=== PATIENT | female | born 1980 | race Caucasian/White ===

== ENCOUNTER 2017-08-22 18:35 | Emergency (ER) | payer MEDICAID, SELFPAY ==
--- NOTE | 2017-08-22 19:55 | RAD ---
RADIOGRAPH RIGHT FOOT 3 VIEWS: 08/22/17 HISTORY: 37-year-old female with acute traumatic right foot pain. FINDINGS: Lateral view demonstrates nondisplaced spiral fracture of the distal fibular metadiaphysis. There is no fracture, dislocation or any other osseous abnormality of the foot. IMPRESSION: 1. Normal right foot. 2. Acute, traumatic, nondisplaced spiral fracture of the distal fibular metadiaphysis. POS: [facility]
--- NOTE | 2017-08-22 20:08 | RAD ---
RADIOGRAPH RIGHT ANKLE 3 VIEWS: 08/22/17 HISTORY: 37-year-old female status post traumatic right ankle pain. FINDINGS: There is a spiral fracture of the distal metadiaphysis of the fibula, with mild comminution, and min imal displacement. There is no angulation. There is lateral soft tissue swelling. Ankle mortise is s ymmetrical. The distal tibia is intact. Talar dome is maintained. IMPRESSION: Acute, traumatic, essentially nondisplaced, mildly comminuted spiral fracture of the distal fibular metadiaphysis. POS: [facility]
[2017-08-22] MEDS ORDERED: HYDROcodone/Acetaminophen 10/325 mg Tablet ONE (20:38)
== END 2017-08-22 21:21 | disposition home or self-care (01) ==
LOC: ERS 18:35
DX: S82.444A Nondisplaced spiral fracture of shaft of right fibula, initial encounter for closed fracture (principal); I69.351 Hemiplegia and hemiparesis following cerebral infarction affecting right dominant side; I10 Essential (primary) hypertension; F41.9 Anxiety disorder, unspecified; F32.9 Major depressive disorder, single episode, unspecified; F17.210 Nicotine dependence, cigarettes, uncomplicated; Z79.899 Other long term (current) drug therapy; Z79.82 Long term (current) use of aspirin; W10.9XXA Fall (on) (from) unspecified stairs and steps, initial encounter
CPT/HCPCS: 29515

== ENCOUNTER 2017-09-09 10:06 | Emergency (ER) | payer MEDICAID ==
[2017-09-09] MEDS ORDERED: HYDROcodone/Acetaminophen 10/325 mg Tablet ONE (11:15)
--- NOTE | 2017-09-09 12:02 | ULT ---
RIGHT LOWER EXTREMITY VENOUS DOPPLER: Date: 09/09/17 HISTORY: Swelling. Pain. COMPARISON: None. TECHNIQUE: Real-time Giron scale with color Doppler and spectral analysis of the right lower extremity venous sy stem was performed with a linear transducer. FINDINGS: The right common femoral, femoral, proximal portion of greater saphenous and deep femoral vein, as w ell as popliteal and posterior tibial veins were interrogated. There is occlusive thrombus in the right popliteal vein extending to the posterior tibial vein. The common femoral, femoral, and proximal portion of greater saphenous veins are patent. IMPRESSION: Occlusive thrombus popliteal vein extending to the posterior tibial vein. ER physician notified of findings via telephone at [phone] hours. CODE CR. POS: [facility]
[2017-09-09 12:14] LABS: #Basophils 0.2 thou/uL (0.0-0.2); #Eosinphils 0.1 thou/uL (0.0-0.7); #Lymphocytes 4.1 thou/uL (1.20-3.40); #Monocytes 1.2 thou/uL (0.11-0.59); #Neutrophils 7.9 thou/uL (1.40-6.50); %Basophils 1.7 % (0.0-1.0); %Eosinophils 0.7 % (0.0-10.0); %Lymphocytes 30.6 % (21.0-51.0); %Monocytes 8.5 % (0.0-10.0); Hematocrit 44.6 % (36.0-47.0); Mean Platelet Volume 7.5 fL (7.4-10.4); Red Blood Cell (RBC) Count 4.63 mill/uL (4.20-5.40); White Blood Cell (WBC) Count 13.5 thou/uL (4.8-10.8)
[2017-09-09 12:29] LABS: PTT 31.1 SEC (22.9-36.1); Prothrombin Time 13.8 SEC (12.0-14.7)
[2017-09-09 12:38] LABS: ALT (SGPT) 24 U/L (8-55); AST (SGOT) 19 U/L (5-34); Alkaline Phosphatase 71 U/L (40-150); Anion Gap 17 mmol/L (10-20); BUN (Urea Nitrogen) 12 mg/dL (7.0-18.7); Bilirubin, Total 0.9 mg/dL (0.2-1.2); Calc. Creatinine Clearance 0 mL/min (70-130); Calcium 10.1 mg/dL (7.8-10.44); Carbon Dioxide 18 mmol/L (22-29); Chloride 104 mmol/L (98-107); Estimated GFR-MDRD Greater than 90; Globulin 3.4 g/dL (2.4-3.5); Protein, Total 7.4 g/dL (6.0-8.3)
--- NOTE | 2017-09-09 13:56 | CT ---
CT ANGIOGRAM THORAX WITH IV CONTRAST AND 3D RECONSTRUCTIONS: Date: 09/09/17 HISTORY: Shortness of breath. Patient complaining of swelling and tenderness right lower extremity deep venou s thrombosis. FINDINGS: No filling defects are seen of the pulmonary arteries to suggest a pulmonary embolus. The thoracic a elia I normal in caliber without evidence of an aortic dissection. The heart is mildly enlarged. There are mild ground-glass densities bilaterally, likely attributable to expiratory phase of imagin g. No discrete pulmonary nodule, mass, or pleural effusion is identified. There is mild soft tissue prominence in each hilar region, which may be related to mild nonspecific prominent lymph nodes. Visualized upper abdomen demonstrates a normal CT appearance for phase of imaging. IMPRESSION: 1. No CT evidence of a pulmonary embolus. 2. Mild nonspecific hilar lymph node prominence. POS: [facility]
[2017-09-09] MEDS ORDERED: ISOVUE-370 76%-LOCM 1 ML ONE (15:52)
== END 2017-09-09 15:21 | disposition home or self-care (01) ==
LOC: ERS 10:06
DX: I82.431 Acute embolism and thrombosis of right popliteal vein (principal); M79.604 Pain in right leg; I69.251 Hemiplegia and hemiparesis following other nontraumatic intracranial hemorrhage affecting right dominant side; I10 Essential (primary) hypertension; F32.9 Major depressive disorder, single episode, unspecified; F41.9 Anxiety disorder, unspecified; F17.210 Nicotine dependence, cigarettes, uncomplicated; Z71.6 Tobacco abuse counseling; Z46.89 Encounter for fitting and adjustment of other specified devices; Z79.899 Other long term (current) drug therapy
CPT/HCPCS: 36415; 71275; 80053; 84703; 85025; 85610; 85730; 99406

== ENCOUNTER 2018-05-20 10:55 | Emergency (ER) | payer MEDICAID, SELFPAY | END 2018-05-20 11:58 | disposition home or self-care (01) | LOC: ERS 10:55 | DX: S61.452A Open bite of left hand, initial encounter (principal); Z86.73 Personal history of transient ischemic attack (TIA), and cerebral infarction without residual deficits; I10 Essential (primary) hypertension; F32.9 Major depressive disorder, single episode, unspecified; F41.9 Anxiety disorder, unspecified; F17.210 Nicotine dependence, cigarettes, uncomplicated; W57.XXXA Bitten or stung by nonvenomous insect and other nonvenomous arthropods, initial encounter | CPT/HCPCS: 99283 ==

== ENCOUNTER 2018-06-08 23:01 | Emergency (ER) | payer SELFPAY ==
[2018-06-08] MEDS ORDERED: Ketorolac Tromethamine 30 MG/ML VIAL ONE (23:18)
[2018-06-08 23:33] LABS: Bilirubin Negative (Negative); Blood, Urine Negative (Negative); Clarity CLEAR (Clear); Glucose, Urine (Dipstick) Negative (Negative); Leukocyte Negative (Negative); Nitrite Negative (Negative); Protein, Urine (Dipstick) Negative (Neg-Trace); Specific Gravity, Urine 1.011 (1.002-1.036); pH, Urine 7.5 (5.0-9.0)
[2018-06-08 23:38] LABS: #Basophils 0.2 thou/uL (0.0-0.2); #Eosinphils 0.1 thou/uL (0.0-0.7); #Lymphocytes 4.2 thou/uL (1.20-3.40); #Monocytes 1.4 thou/uL (0.11-0.59); #Neutrophils 12.5 thou/uL (1.40-6.50); %Basophils 1.3 % (0.0-1.0); %Eosinophils 0.5 % (0.0-10.0); %Lymphocytes 22.9 % (21.0-51.0); %Monocytes 7.4 % (0.0-10.0); %Neutrophils 67.9 % (42.0-75.0); Hemoglobin 16.3 g/dL (12.0-16.0); Mean Corpuscular HGB CONC 34.4 g/dL (32.0-36.0); Mean Corpuscular Hemoglobin 33.7 pg (27.0-31.0); Mean Corpuscular Volume 97.7 fL (78.0-98.0); Mean Platelet Volume 7.4 fL (7.4-10.4); Platelet Count 204 thou/uL (130-400); RBC Distribution Width 12.7 % (11.5-14.5); Red Blood Cell (RBC) Count 4.86 mill/uL (4.20-5.40); White Blood Cell (WBC) Count 18.4 thou/uL (4.8-10.8)
[2018-06-08 23:38] LABS: Pregnancy Test - Urine (BHCG) Negative (Negative); Pregu Control Background? CLEAR/WHITE (CLR/WHITE); Pregu Control Bar Appear? YES (CONTROL BAR); Specific Gravity 1.011 (1.002-1.036)
[2018-06-08 23:45] LABS: BHCG - Serum Negative (NEGATIVE); Pregs Control Background? CLEAR/WHITE (CLR/WHITE); Pregs Control Bar Appear? YES (CONTROL BAR)
--- NOTE | 2018-06-08 23:48 | CT ---
CT ABDOMEN AND PELVIS WITHOUT CONTRAST: HISTORY: Left-sided flank pain. FINDINGS: Absence of oral and IV contrast reduces the sensitivity of the exam, particularly for evaluation of s olid organs involved. The lung bases are clear. No calcified gallstones are seen. No free air or free fluid is noted in t he abdomen or pelvis. A normal appearing appendix is present. There are calculi in the kidneys, on either side. There is a 4 mm calculus in the dependent portion of the left extrarenal pelvis. No calculi are seen in the ureters or in the urinary bladder. No hyd roureteronephrosis is seen on either side. A uterus and ovaries are present. No acute osseous abnormalities are seen. IMPRESSION: 1. Nonobstructing bilateral renal calculi. 2. A 4 mm, nonobstructing calculus in the left renal pelvis. POS: [facility]
[2018-06-08 23:53] LABS: ALT (SGPT) 16 U/L (8-55); AST (SGOT) 16 U/L (5-34); Albumin 3.9 g/dL (3.5-5.0); Alkaline Phosphatase 60 U/L (40-150); Anion Gap 12 mmol/L (10-20); BUN (Urea Nitrogen) 10 mg/dL (7.0-18.7); Bilirubin, Total 0.3 mg/dL (0.2-1.2); Calc. Creatinine Clearance 0 mL/min (70-130); Calcium 9.5 mg/dL (7.8-10.44); Carbon Dioxide 22 mmol/L (22-29); Chloride 108 mmol/L (98-107); Estimated GFR-MDRD 87; Globulin 2.9 g/dL (2.4-3.5); Glucose 115 mg/dL (70-105); Lipase 17 U/L (8-78); Potassium 4.1 mmol/L (3.5-5.1); Protein, Total 6.8 g/dL (6.0-8.3); Sodium 138 mmol/L (136-145)
== END 2018-06-09 01:01 | disposition home or self-care (01) ==
LOC: ERS 23:01
DX: N20.0 Calculus of kidney (principal); I10 Essential (primary) hypertension; F17.210 Nicotine dependence, cigarettes, uncomplicated; Z86.73 Personal history of transient ischemic attack (TIA), and cerebral infarction without residual deficits
CPT/HCPCS: 36415; 74176; 80053; 81003; 81025; 83690; 84703; 85025; 87086; 96361; 96374; J1885

== ENCOUNTER 2018-06-10 17:13 | Emergency (ER) | payer SELFPAY ==
[2018-06-10 17:53] LABS: Bilirubin Negative (Negative); Blood, Urine Trace (Negative); Clarity CLEAR (Clear); Glucose, Urine (Dipstick) Negative (Negative); Leukocyte Negative (Negative); Nitrite Negative (Negative); Protein, Urine (Dipstick) Negative (Neg-Trace); pH, Urine 6.5 (5.0-9.0)
[2018-06-10 17:56] LABS: Bacteria/HPF Rare-Few HPF (None Seen); Hyaline Casts/LPF 0-3 HYALINE CAST LPF (0-3 Hyaline); Pathc Cast-AUWi Flag 0.14 (0-2.49); RBC/HPF 0-3 HPF (0-3); Squamous Epithelial 0-3 HPF (0-3)
[2018-06-10 18:03] LABS: #Basophils 0.3 thou/uL (0.0-0.2); #Eosinphils 0.1 thou/uL (0.0-0.7); #Lymphocytes 3.3 thou/uL (1.20-3.40); #Monocytes 1.5 thou/uL (0.11-0.59); #Neutrophils 14.1 thou/uL (1.40-6.50); %Basophils 1.4 % (0.0-1.0); %Eosinophils 0.5 % (0.0-10.0); %Monocytes 7.6 % (0.0-10.0); %Neutrophils 73.7 % (42.0-75.0); Hemoglobin 15.9 g/dL (12.0-16.0); Mean Corpuscular HGB CONC 34.3 g/dL (32.0-36.0); Mean Corpuscular Hemoglobin 33.6 pg (27.0-31.0); Mean Corpuscular Volume 97.9 fL (78.0-98.0); Mean Platelet Volume 7.6 fL (7.4-10.4); Platelet Count 206 thou/uL (130-400); RBC Distribution Width 12.4 % (11.5-14.5); Red Blood Cell (RBC) Count 4.73 mill/uL (4.20-5.40); White Blood Cell (WBC) Count 19.1 thou/uL (4.8-10.8)
[2018-06-10 18:29] LABS: ALT (SGPT) 15 U/L (8-55); AST (SGOT) 16 U/L (5-34); Alkaline Phosphatase 66 U/L (40-150); Anion Gap 17 mmol/L (10-20); BUN (Urea Nitrogen) 6 mg/dL (7.0-18.7); Bilirubin, Total 0.4 mg/dL (0.2-1.2); Calc. Creatinine Clearance 0 mL/min (70-130); Calcium 9.5 mg/dL (7.8-10.44); Carbon Dioxide 20 mmol/L (22-29); Chloride 105 mmol/L (98-107); Estimated GFR-MDRD 78; Globulin 2.8 g/dL (2.4-3.5); Glucose 101 mg/dL (70-105); Potassium 3.7 mmol/L (3.5-5.1); Protein, Total 6.8 g/dL (6.0-8.3); Sodium 138 mmol/L (136-145)
[2018-06-10] MEDS ORDERED: Ketorolac Tromethamine 30 MG/ML VIAL ONE (18:46)
== END 2018-06-10 20:36 | disposition home or self-care (01) ==
LOC: ERS 17:13
DX: N20.0 Calculus of kidney (principal); I25.10 Atherosclerotic heart disease of native coronary artery without angina pectoris; I10 Essential (primary) hypertension; F41.9 Anxiety disorder, unspecified; F32.9 Major depressive disorder, single episode, unspecified; F17.210 Nicotine dependence, cigarettes, uncomplicated; Z79.899 Other long term (current) drug therapy; Z87.442 Personal history of urinary calculi; Z86.73 Personal history of transient ischemic attack (TIA), and cerebral infarction without residual deficits
CPT/HCPCS: 36415; 80053; 81003; 81015; 85025; 96361; 96374; J1885

== ENCOUNTER 2018-12-15 21:28 | Emergency (ER) | payer SELFPAY ==
[2018-12-15 21:57] LABS: #Basophils 0.2 thou/uL (0.0-0.2); #Eosinphils 0.2 thou/uL (0.0-0.7); #Lymphocytes 5.2 thou/uL (1.20-3.40); #Monocytes 1.1 thou/uL (0.11-0.59); #Neutrophils 12.7 thou/uL (1.40-6.50); %Eosinophils 1.2 % (0.0-10.0); %Monocytes 5.4 % (0.0-10.0); %Neutrophils 65.4 % (42.0-75.0); Hemoglobin 16.5 g/dL (12.0-16.0); Mean Corpuscular HGB CONC 33.4 g/dL (32.0-36.0); Mean Corpuscular Hemoglobin 33.4 pg (27.0-31.0); Mean Platelet Volume 7.8 fL (7.4-10.4); Platelet Count 258 thou/uL (130-400); RBC Distribution Width 12.1 % (11.5-14.5); Red Blood Cell (RBC) Count 4.95 mill/uL (4.20-5.40); White Blood Cell (WBC) Count 19.4 thou/uL (4.8-10.8)
[2018-12-15 22:08] LABS: Bilirubin Negative (Negative); Blood, Urine Negative (Negative); Clarity CLEAR (Clear); Glucose, Urine (Dipstick) Negative (Negative); Leukocyte Negative (Negative); Nitrite Negative (Negative); Protein, Urine (Dipstick) Negative (Neg-Trace); Specific Gravity, Urine 1.003 (1.002-1.036); Urobilinogen 0.2 mg/dL (0.2-1.0); pH, Urine 5.5 (5.0-9.0)
[2018-12-15 22:17] LABS: Amphetamine Not Detected (NotDetected); Barbiturates Screen Not Detected (NotDetected); Benzodiazepine Screen Not Detected (NotDetected); Cocaine Metabolite Screen Not Detected (NotDetected); Medtox Control Line Valid? VALID (VALID); Medtox Reader # READER 1; Methadone Not Detected (NotDetected); Methamphetamine Not Detected (NotDetected); Opiate Screen Not Detected (NotDetected); Oxycodone Screen Not Detected (NotDetected); Phencyclidine (PCP) Not Detected (NotDetected); THC/Cannabinoid Screen Not Detected (NotDetected); Tricyclic Screen Not Detected (NotDetected)
[2018-12-15 22:19] LABS: ALT (SGPT) 34 U/L (8-55); AST (SGOT) 26 U/L (5-34); Albumin 4.3 g/dL (3.5-5.0); Alkaline Phosphatase 61 U/L (40-150); Anion Gap 16 mmol/L (10-20); BUN (Urea Nitrogen) 8 mg/dL (7.0-18.7); Bilirubin, Total 0.5 mg/dL (0.2-1.2); Calc. Creatinine Clearance 0 mL/min (70-130); Calcium 9.9 mg/dL (7.8-10.44); Carbon Dioxide 17 mmol/L (22-29); Chloride 109 mmol/L (98-107); Estimated GFR-MDRD 86; Globulin 3.3 g/dL (2.4-3.5); Glucose 84 mg/dL (70-105); Potassium 3.8 mmol/L (3.5-5.1); Protein, Total 7.6 g/dL (6.0-8.3); Sodium 138 mmol/L (136-145)
[2018-12-15 22:29] LABS: Acetaminophen Less than 6.0 mcg/mL (10.0-30.0); Alcohol 93 mg/dL (Less than 10); CK (CPK) 102 U/L (29-168); Salicylate Less than 8.0 mg/dL (15.0-30.0)
--- NOTE | 2018-12-15 23:03 | CT ---
CT BRAIN 12/15/18 HISTORY: Altered mental status. Patient was reported unresponsive. Noncontrast enhanced CT images of the brain obtained from the base of skull through the vertex. Brain and bone windows obtained. Comparison made to a previous exam from 04/02/16. Noncontrast enhanced CT images of the brain demonstrate the brain to be unremarkable. No evidence for intracranial masses, hemorrhages, strokes or contusions seen. IMPRESSION: Unremarkable CT brain. POS: [facility]
[2018-12-15 23:11] LABS: BHCG - Serum Negative (NEGATIVE); Pregs Control Background? CLEAR/WHITE (CLR/WHITE); Pregs Control Bar Appear? YES (CONTROL BAR)
--- NOTE | 2018-12-15 23:11 | RAD ---
AP VIEW CHEST: 12/15/18 HISTORY: Chest pain. AP view chest is obtained on 12/15/18. Comparison is made to previous exam from 01/16/16. AP view chest demonstrates EKG leads seen over the chest. The lungs are well aerated. No evidence of active intrathoracic disease seen. No evidence of effusions, pneumonia or pneumothorax seen. IMPRESSION: Unremarkable AP view chest. POS: [facility]
== END 2018-12-15 23:26 | disposition home or self-care (01) ==
LOC: ERS 21:28
DX: F10.129 Alcohol abuse with intoxication, unspecified (principal); R47.81 Slurred speech; D72.829 Elevated white blood cell count, unspecified; Z86.73 Personal history of transient ischemic attack (TIA), and cerebral infarction without residual deficits; I10 Essential (primary) hypertension; F41.9 Anxiety disorder, unspecified; F32.9 Major depressive disorder, single episode, unspecified; F17.210 Nicotine dependence, cigarettes, uncomplicated; Z79.899 Other long term (current) drug therapy
CPT/HCPCS: 36415; 70450; 71045; 80053; 80306; 80307; 81003; 82550; 83605; 84703; 85025; 87040; 93005

== ENCOUNTER 2019-07-02 09:26 | Emergency (ER) | payer SELFPAY ==
[2019-07-02 09:54] LABS: Bacteria/HPF None Seen HPF (None Seen); Bilirubin Negative (Negative); Blood, Urine Negative (Negative); Clarity Clear (Clear); Glucose, Urine (Dipstick) Normal (Negative); Leukocyte 25 Leu/uL (Negative); Nitrite Negative (Negative); Protein, Urine (Dipstick) Negative (Neg-Trace); RBC/HPF 0-3 HPF (0-3); Squamous Epithelial 0-3 HPF (0-3); Urobilinogen Normal mg/dL (Less than 2); WBC/HPF 0-3 HPF (0-3)
[2019-07-02 09:55] LABS: Pregnancy Test - Urine (BHCG) Negative (Negative)
[2019-07-02 09:56] LABS: Pregu Control Background? CLEAR/WHITE (CLR/WHITE); Pregu Control Bar Appear? YES (CONTROL BAR); Specific Gravity 1.009 (1.002-1.036)
[2019-07-02 10:05] LABS: #Basophils 0.1 thou/uL (0.0-0.2); #Eosinphils 0.1 thou/uL (0.0-0.7); #Lymphocytes 3.3 thou/uL (1.20-3.40); #Monocytes 0.8 thou/uL (0.11-0.59); #Neutrophils 5.5 thou/uL (1.40-6.50); %Eosinophils 0.8 % (0.0-10.0); %Lymphocytes 33.5 % (21.0-51.0); %Monocytes 8.5 % (0.0-10.0); %Neutrophils 56.2 % (42.0-75.0); Hemoglobin 15.9 g/dL (12.0-16.0); Mean Corpuscular HGB CONC 34.4 g/dL (32.0-36.0); Mean Corpuscular Hemoglobin 33.5 pg (27.0-31.0); Mean Corpuscular Volume 97.3 fL (78.0-98.0); Mean Platelet Volume 7.4 fL (7.4-10.4); Platelet Count 246 thou/uL (130-400); RBC Distribution Width 12.2 % (11.5-14.5); Red Blood Cell (RBC) Count 4.74 mill/uL (4.20-5.40); White Blood Cell (WBC) Count 9.8 thou/uL (4.8-10.8)
[2019-07-02] MEDS ORDERED: Morphine 4 MG/ML VIAL ONE (10:21)
[2019-07-02] MEDS ORDERED: Sodium Chloride 0.9% 100 ML ONE (10:21)
[2019-07-02] MEDS ORDERED: Pantoprazole 40 MG VIAL ONE (10:22)
[2019-07-02] MEDS ORDERED: Ondansetron PF 4 MG/2 ML Vial ONE (10:22)
[2019-07-02 10:28] LABS: ALT (SGPT) 18 U/L (8-55); AST (SGOT) 18 U/L (5-34); Albumin 4.1 g/dL (3.5-5.0); Alkaline Phosphatase 53 U/L (40-150); Anion Gap 8 mmol/L (10-20); BUN (Urea Nitrogen) 11 mg/dL (7.0-18.7); Bilirubin, Total 0.3 mg/dL (0.2-1.2); Calc. Creatinine Clearance 0 mL/min (70-130); Calcium 9.8 mg/dL (7.8-10.44); Carbon Dioxide 28 mmol/L (22-29); Chloride 104 mmol/L (98-107); Estimated GFR-MDRD 86; Globulin 2.9 g/dL (2.4-3.5); Glucose 95 mg/dL (70-105); Lipase 17 U/L (8-78); Potassium 5.1 mmol/L (3.5-5.1); Sodium 135 mmol/L (136-145)
--- NOTE | 2019-07-02 10:39 | RAD ---
XR Chest 1 View Portable HISTORY: Nausea and vomiting. Right upper quadrant pain COMPARISON: 12/15/2018 FINDINGS: The heart size is normal. The lungs are well expanded without focal areas of consolidation, pneumothorax or pleural effusions. IMPRESSION: No radiographic evidence of acute cardiopulmonary process.
[2019-07-02 10:58] LABS: BHCG - Serum Negative (NEGATIVE); Pregs Control Background? CLEAR/WHITE (CLR/WHITE); Pregs Control Bar Appear? YES (CONTROL BAR)
--- NOTE | 2019-07-02 11:23 | ULT ---
RIGHT UPPER QUDRANT ULTRASOUND: HISTORY: Abdominal pain, nausea, vomiting. FINDINGS: The liver, gallbladder, right kidney, and visualized portions of the pancreas appear normal. The com mon duct measures 5 mm in diameter. No free fluid is seen in the Morison's pouch. IMPRESSION: No significant abnormalities identified. POS: [facility]
--- NOTE | 2019-07-03 13:43 | EKG ---
Test Reason : Blood Pressure : / mmHG Vent. Rate : 063 BPM Atrial Rate : 063 BPM P-R Int : 174 ms QRS Dur : 088 ms QT Int : 414 ms P-R-T Axes : 035 014 026 degrees QTc Int : 423 ms Normal sinus rhythm Septal infarct , age undetermined Abnormal ECG Confirmed by MARIALUISA TERRELL, WALDO ([id number]), newspaper copy editor PRIYANKA DANIELS ([id number]) on 07/03/2019 1:43:23 PM Referred By: Confirmed By:WALDO ELAM MD
== END 2019-07-02 11:32 | disposition home or self-care (01) ==
LOC: ERS 09:26
DX: K29.70 Gastritis, unspecified, without bleeding (principal); Z86.73 Personal history of transient ischemic attack (TIA), and cerebral infarction without residual deficits; I10 Essential (primary) hypertension; F32.9 Major depressive disorder, single episode, unspecified; F41.9 Anxiety disorder, unspecified; F17.210 Nicotine dependence, cigarettes, uncomplicated
CPT/HCPCS: 36415; 71045; 76705; 80053; 81003; 81015; 81025; 83690; 84484; 84703; 85025; 93005; 96361; 96374; 96375; C9113; J2270; J2405; J3490

== ENCOUNTER 2019-07-28 09:51 | Emergency (ER) | payer SELFPAY | END 2019-07-28 10:30 | disposition home or self-care (01) | LOC: ERS 09:51 | DX: L73.9 Follicular disorder, unspecified (principal); F41.9 Anxiety disorder, unspecified; F32.9 Major depressive disorder, single episode, unspecified; F17.210 Nicotine dependence, cigarettes, uncomplicated | CPT/HCPCS: 99282 ==

== ENCOUNTER 2020-02-15 16:55 | Emergency (ER) | payer SELFPAY ==
--- NOTE | 2020-02-15 17:59 | RAD ---
RIGHT ANKLE RADIOGRAPHS THREE VIEWS: 02/15/20 PROVIDED CLINICAL HISTORY: Fall with ankle pain. FINDINGS: There is a nondisplaced Merlos A distal fibular fracture. There is a distracted fifth metatarsal base fracture. No additional fracture is evident. Alignment appears otherwise anatomic. Joint spaces appe ar preserved. IMPRESSION: 1. Nondisplaced Merlos A distal fibular fracture. 2. Displaced fifth metatarsal base fracture. POS: [facility]
== END 2020-02-15 19:41 | disposition home or self-care (01) ==
LOC: ERS 16:55
DX: S82.831A Other fracture of upper and lower end of right fibula, initial encounter for closed fracture (principal); S92.351A Displaced fracture of fifth metatarsal bone, right foot, initial encounter for closed fracture; S80.211A Abrasion, right knee, initial encounter; I10 Essential (primary) hypertension; F32.9 Major depressive disorder, single episode, unspecified; F41.9 Anxiety disorder, unspecified; F17.210 Nicotine dependence, cigarettes, uncomplicated; Z86.73 Personal history of transient ischemic attack (TIA), and cerebral infarction without residual deficits; W10.9XXA Fall (on) (from) unspecified stairs and steps, initial encounter
CPT/HCPCS: 29515

== ENCOUNTER 2020-02-19 13:28 | Emergency (ER) | payer SELFPAY ==
[2020-02-19] MEDS ORDERED: HYDROcodone/Acetaminophen 10/325 mg Tablet ONE (14:11)
--- NOTE | 2020-02-19 15:45 | ULT ---
RIGHT LOWER EXTREMITY VENOUS DOPPLER ULTRASOUND 02/19/20 COMPARISON: None. HISTORY: Pain, swelling, and edema, assess for DVT. TECHNIQUE: Multiplanar leiva scale sonographic imaging of the venous structures of the right lower extremity obta ined with color flow and spectral analysis. FINDINGS: Right common femoral vein, greater saphenous vein, profunda femoral vein, femoral vein, and imaged po rtions of the popliteal vein appear unremarkable. The distal popliteal vein could not be optimally as sessed. Visualized portions of the posterior tibial vein are patent. Mid posterior tibial vein could not be v isualized. IMPRESSION: No evidence for deep venous thrombosis of the right lower extremity. Of note, the distal popliteal ve in could not be adequately assessed on this examination secondary to body habitus. POS: [facility]
== END 2020-02-19 16:01 | disposition home or self-care (01) ==
LOC: ERS 13:28
DX: M79.89 Other specified soft tissue disorders (principal); I10 Essential (primary) hypertension; F17.210 Nicotine dependence, cigarettes, uncomplicated; Z86.73 Personal history of transient ischemic attack (TIA), and cerebral infarction without residual deficits

== ENCOUNTER 2020-11-24 10:06 | Emergency (ER) | payer SELFPAY | END 2020-11-24 10:40 | disposition home or self-care (01) | LOC: ERS 10:06 | DX: J01.90 Acute sinusitis, unspecified (principal); I10 Essential (primary) hypertension; F17.210 Nicotine dependence, cigarettes, uncomplicated | CPT/HCPCS: 99281 ==

== ENCOUNTER 2021-12-06 09:14 | Emergency (ER) | payer SELFPAY ==
[2021-12-06] MEDS ORDERED: Lidocaine 1% (PF) 30 ML VIAL ONE (10:39)
== END 2021-12-06 11:44 | disposition home or self-care (01) ==
LOC: ERS 09:14
DX: N61.1 Abscess of the breast and nipple (principal); I10 Essential (primary) hypertension; Z86.73 Personal history of transient ischemic attack (TIA), and cerebral infarction without residual deficits; F17.210 Nicotine dependence, cigarettes, uncomplicated
CPT/HCPCS: 10060; J2001